=== PATIENT | male | born 1990 | race Caucasian/White ===

== ENCOUNTER → 2017-01-30 | Outpatient (CLI) | payer OTHER ==
--- NOTE | 2017-01-30 16:51 | DIREP ---
PROCEDURE:MR WRIST WITHOUT CONTRAST [Left] TECHNIQUE:Axial T1, proton density fat sat, T2 and T2 fat sat; sagittal T1 and T2 fat sat; coronal proton density fat sat, T2 fat sat and gradient echo sequences were obtained of the left wrist. COMPARISON:None. INDICATIONS:TFCC TEAR FINDINGS: Osseous structures: There is no fracture, marrow edema, destructive intraosseous lesion or evidence of avascular necrosis. The articular surfaces are smooth and congruent. Ligaments: The scapholunate, lunotriquetral and TFCC ligaments are intact. The extrinsic ligaments are normal. Muscles and tendons: The extensor and flexor tendons are normal. There is no evidence of tenosynovitis. The intrinsic muscles of the hand are normal. Miscellaneous: There is a cyst containing fluid measuring 1.71 x 1.94 x 1.68 cm (CC by mediolateral by AP) arising from the volar aspect of the wrist with communication to the wrist joint between the ulna and the triquetrum. This is consistent with a ganglion cyst. There are no other soft tissue mass lesions. The neurovascular structures are normal. CONCLUSION: 1. Moderate sized soft tissue ganglion cyst arising off of the volar aspect of the wrist at the articulation between the ulna and triquetrum. 2. The TFCC is intact. Dictated by: Reji Richard M.D. on 01/30/2017 at 04:43 PM
== END | disposition home or self-care (01) ==
LOC: MRI 14:21
PROVIDERS: ATTEND Orthopaedic Surgery
DX: S63.592A Other specified sprain of left wrist, initial encounter (principal); M25.832 Other specified joint disorders, left wrist; X58.XXXA Exposure to other specified factors, initial encounter; Y93.89 Activity, other specified; Y92.89 Other specified places as the place of occurrence of the external cause; Y99.8 Other external cause status
CPT/HCPCS: 73221

== ENCOUNTER 2017-02-26 00:09 | Day surgery (SDC) | payer OTHER ==
[2017-02-25 14:31] VITALS: BP 132/81
[2017-02-26] VITALS (11 sets, daily range): BP systolic 110–135; BP diastolic 37–74
[~2017-02-26] VITALS: Ht 188 cm; Wt 117.9 kg
[2017-02-26] MEDS ORDERED: LACTATED RINGERS 1,000 ML ONE (05:41)
[2017-02-26] MEDS ORDERED: SODIUM CHLORIDE IR ONE (06:42)
[2017-02-26] MEDS ORDERED: LIDOCAINE 1% VIAL ONE ×2 (06:43→10:31)
[2017-02-26] MEDS ORDERED: LACTATED RINGERS IV SCH (07:00)
[2017-02-26] MEDS ORDERED: ZOFRAN ONE (07:31)
[2017-02-26] MEDS ORDERED: VERSED ONE (07:31)
[2017-02-26] MEDS ORDERED: XYLOCAINE ONE (07:31)
[2017-02-26] MEDS ORDERED: TORADOL ONE (07:31)
[2017-02-26] MEDS ORDERED: SUBLIMAZE ONE (07:32)
[2017-02-26] MEDS ORDERED: DIPRIVAN IV ONE (07:32)
[2017-02-26] MEDS ORDERED: SUBLIMAZE IV PRN (12:00)
[2017-02-26] MEDS ORDERED: TORADOL IV ONE (12:00)
[2017-02-26] MEDS ORDERED: LACTATED RINGERS 1,000 ML IV ONE (12:00)
[2017-02-26] MEDS ORDERED: NORCO 5 MG PO ONE (12:09)
[2017-02-26] MEDS ORDERED: NORCO 5 MG PO STA (12:09)
[2017-02-26] MEDS ORDERED: ACET-687 PO (12:32)
--- NOTE | 2017-02-26 13:29 | OPH ---
DATE OF SURGERY: 02/26/2017 PREOPERATIVE DIAGNOSIS: Ganglion cyst about the left wrist. POSTOPERATIVE DIAGNOSIS: Ganglion cyst about the left wrist. OPERATIVE PROCEDURE: Excision of ganglion cyst, left wrist. SURGEON: Thang Iraheta MD ANESTHESIA: General endotracheal. TOURNIQUET TIME: 29 minutes at 300 mmHg. DRAINS: None. BLOOD LOSS: 5 mL. DESCRIPTION OF INDICATIONS: The patient is a 26-year-old male. He injured his left wrist on 01/01/2017 while at work. He suffered a twisting injury about the wrist and continued to complain of pain. He developed pain and swelling about the left wrist, which he did not have prior to this injury. He continued to complain about pain on the ulnar side of his wrist. He has tried bracing as well as anti-inflammatories without prolonged relief. His exam showed that he had a cystic mass about the ulnar and volar aspect of the wrist. The wrist had normal flexion and extension as well as radial and ulnar deviation. His x-rays were negative. His MRI scan showed that he had a large ganglion cyst about the volar-ulnar aspect about the wrist. His TFCC was normal. Because of continued pain about the area, the patient was taken to the operating room for excision of the ganglion cyst. In my opinion, it is related to the injury that he suffered at work. DESCRIPTION OF PROCEDURE: The patient was placed on the operating table in the supine position. A general endotracheal anesthetic was induced without difficulty. The patient had the well-padded tourniquet placed around his left upper extremity. Left upper extremity was then sterilely prepped and draped. The patient's arm was then exsanguinated with an Esmarch and the tourniquet was inflated to 300 mmHg with a good bounce. The patient had a volar and ulnar incision made about the wrist. The incision was taken through the skin and the subcutaneous tissues. The muscle belly of the flexor carpi ulnaris was then retracted radially. The cyst was identified. We had to decompress the cyst to get around it. With soft tissue dissection, the cyst was dissected off the ulnar triquetral joint. Once this cyst was removed, then the capsular area was then cauterized with the Bovie. The wounds were then copiously irrigated. The skin edges were injected with 1% lidocaine plain. The wound was then closed with interrupted 3-0 Ethilon. A compressive dressing was applied. The patient was extubated in the operating room and sent to recovery in stable condition. Thang Iraheta MD DR: DONNIE/lita JOB# [id number]
== END 2017-02-26 12:50 | disposition home or self-care (01) | DRG 558 ==
LOC: SDC 00:09
PROVIDERS: ATTEND Orthopaedic Surgery
DX: M67.432 Ganglion, left wrist (principal)
CPT/HCPCS: 25111; J1885; J2001 ×2; J2250; J2405; J3010; J3490; J7030; J7120